=== PATIENT | male | born 2000 | race Caucasian/White ===

== ENCOUNTER 2018-09-14 20:27 | Emergency (ER) | payer MEDICAID ==
[~2018-09-14] VITALS: Ht 172.7 cm; Wt 74.0 kg
[2018-09-14 20:34] VITALS: BP 110/62
== END 2018-09-14 21:36 | disposition left against medical advice (07) ==
LOC: ER 20:30
DX: S61.011A Laceration without foreign body of right thumb without damage to nail, initial encounter (principal); S61.411A Laceration without foreign body of right hand, initial encounter; Z53.21 Procedure and treatment not carried out due to patient leaving prior to being seen by health care provider; X58.XXXA Exposure to other specified factors, initial encounter; Y93.89 Activity, other specified; Y92.89 Other specified places as the place of occurrence of the external cause; Y99.8 Other external cause status

== ENCOUNTER 2022-05-29 12:24 | Emergency (ER) | payer SELFPAY ==
[~2022-05-29] VITALS: Ht 167.6 cm; Wt 63.6 kg
[2022-05-29 12:36] VITALS: BP 122/84
[2022-05-29 13:01] LABS: BASOPHILS % (AUTO) 0.4 % (0-1); EOSINOPHILS # (AUTO) 0.1 X10'3 (0-0.9); EOSINOPHILS % (AUTO) 1.4 % (0-6); HEMATOCRIT 41.2 % (42.0-52.0); LYMPHOCYTES # (AUTO) 2.5 X10'3 (1.1-4.8); LYMPHOCYTES % (AUTO) 29.7 % (21-51); MEAN CORPUSCULAR HEMOGLOBIN 30.2 PG (27.0-31.0); MEAN CORPUSCULAR VOLUME 89.1 FL (78-98); MEAN PLATELET VOLUME 9.4 FL (7.4-10.4); MONOCYTES # (AUTO) 0.6 X10'3 (0-0.9); MONOCYTES % (AUTO) 6.7 % (2-12); NEUTROPHILS # (AUTO) 5.2 X10'3 (1.8-7.7); NEUTROPHILS % (AUTO) 61.8 % (42-75); PLATELET COUNT 319 X10'3 (140-440); RED BLOOD COUNT 4.62 X10'6 (4.70-6.10); RED CELL DISTRIBUTION WIDTH 14.4 % (11.5-14.5); WHITE BLOOD COUNT 8.4 X10'3 (4.5-11.0)
[2022-05-29 13:19] LABS: ALANINE AMINOTRANSFERASE 20 U/L (12-78); ALBUMIN 4.1 G/DL (3.4-5.0); ALKALINE PHOSPHATASE 88 IU/L (46-116); ANION GAP 9 (8-16); ASPARTATE AMINO TRANSFERASE 25 U/L (10-37); BILIRUBIN,TOTAL 0.3 MG/DL (0.1-1.0); BLOOD UREA NITROGEN 12 MG/DL (7-18); BUN/CREATININE RATIO 11.9 (5.4-32.0); CALCIUM 9.2 MG/DL (8.5-10.1); CHLORIDE 105 MMOL/L (99-107); CREATININE 1.01 MG/DL (0.60-1.10); GLUCOSE 94 MG/DL (70-104); POTASSIUM 4.2 MMOL/L (3.5-5.1); SODIUM 142 MMOL/L (135-145); TOTAL CARBON DIOXIDE 28.4 MMOL/L (24-32); TOTAL PROTEIN 8.1 G/DL (6.4-8.2); eGFR > 90 ML/MIN
== END 2022-05-29 17:44 | disposition left against medical advice (07) ==
LOC: ER 12:25
DX: I49.8 Other specified cardiac arrhythmias (principal); Z53.21 Procedure and treatment not carried out due to patient leaving prior to being seen by health care provider
CPT/HCPCS: 36415; 80053; 83880; 84484; 85025

== ENCOUNTER 2022-11-21 16:31 | Emergency (ER) | payer MEDICAID ==
[~2022-11-21] VITALS: Ht 170.2 cm; Wt 65.0 kg
[2022-11-21 16:52] VITALS: BP 122/70
== END 2022-11-21 20:50 | disposition left against medical advice (07) ==
LOC: ER 16:32
DX: R09.81 Nasal congestion (principal); Z53.21 Procedure and treatment not carried out due to patient leaving prior to being seen by health care provider

== ENCOUNTER 2023-05-23 12:35 | Emergency (ER) | payer MEDICAID | END 2023-05-23 12:55 | disposition left against medical advice (07) | LOC: ER 12:35 | DX: Z11.3 Encounter for screening for infections with a predominantly sexual mode of transmission (principal); Z53.21 Procedure and treatment not carried out due to patient leaving prior to being seen by health care provider ==